=== PATIENT | male | born 1930 | race Hispanic/Latino ===

== ENCOUNTER 2017-11-25 15:29 | Observation (INO) | payer OTHER ==
[~2017-11-25] VITALS: Ht 172.7 cm; Wt 105.9 kg
[2017-11-25 16:49] LABS: BASOPHILS % (AUTO) 0.9 % (0.0-5.0); EOSINOPHILS % (AUTO) 2.1 % (0.0-8.0); HEMATOCRIT 32.5 % (42-54); LYMPHOCYTES % (AUTO) 20.2 % (21.0-51.0); MEAN CORPUSCULAR HEMOGLOBIN 31.2 pg (27.0-33.0); MEAN CORPUSCULAR HGB CONC 35.9 g/dL (32.0-36.0); MEAN CORPUSCULAR VOLUME 86.8 fL (79-99); MONOCYTES % (AUTO) 11.2 % (3.0-13.0); NEUTROPHILS % (AUTO) 65.6 % (40.0-77.0); PLATELET COUNT (AUTO) 191 K/uL (130-400); RED BLOOD CELL COUNT(AUTO) 3.74 MIL/uL (4.50-6.20); RED CELL DISTRIBUTION WIDTH 13.9 % (11.0-15.5); WHITE BLOOD COUNT (AUTO) 6.6 K/uL (4.8-10.8)
[2017-11-25] MEDS ORDERED: ALBUTEROL SULFATE 0.083% 2.5 MG/3 ML INH IH ONE (16:51)
[2017-11-25 17:10] LABS: CREATININE 1.4 mg/dL (0.5-1.5)
[2017-11-25 17:17] LABS: ALBUMIN 3.1 g/dL (3.5-5.0); B-TYPE NATRIURETIC PEPTIDE 476 pg/mL (0-100); BILIRUBIN,TOTAL 0.3 mg/dL (0.2-1.0); TOTAL PROTEIN, SERUM 6.5 g/dL (6.0-8.3)
[2017-11-25 18:40] LABS: INR 0.97 (0.85-1.15); PARTIAL THROMBOPLASTIN TIME 28.7 SEC (26.3-35.5); PROTHROMBIN TIME 10.2 SEC (9.6-11.6)
[2017-11-25] MEDS ORDERED: ACETAMINOPHEN 325 MG TAB PO PRN ×2 (23:30)
[2017-11-25] MEDS ORDERED: LIDOCAINE HCL-MPF 1% 2ML VIAL IVP PRN (23:30)
[2017-11-25] MEDS ORDERED: POTASSIUM CHLORIDE 10% ELIXIR 20 MEQ/15 ML UDCUP PO PRN (23:30)
[2017-11-25] MEDS ORDERED: POTASSIUM CHLORIDE 20 MEQ ERTAB PO PRN (23:30)
[2017-11-25] MEDS ORDERED: NITROGLYCERIN 0.4 MG SL TAB SL PRN (23:30)
[2017-11-25] MEDS ORDERED: POTASSIUM CHLORIDE 20MEQ/100ML 100 ML IV PRN (23:30)
[2017-11-25] MEDS ORDERED: GLUCAGON 1MG KIT 1 MG ML IM PRN (23:30)
[2017-11-25] MEDS ORDERED: DEXTROSE 50%-WATER 50 ML DISP.SYRIN IV PRN (23:30)
[2017-11-25] MEDS ORDERED: ONDANSETRON HCL MDV 20ML 2 MG/ML VIAL IV PRN (23:30)
[2017-11-25] MEDS ORDERED: ENOXAPARIN SODIUM 100 MG/1 ML SQ ONE (23:58)
[2017-11-26] MEDS ORDERED: ENOXAPARIN SODIUM 30 MG/0.3 ML SQ ONE
[2017-11-26] MEDS ORDERED: ENOXAPARIN SODIUM 40 MG/0.4 ML SYRINGE SQ ONE
[2017-11-26 01:03] LABS: CREATINE KINASE MB 1.8 ng/mL (0.5-3.6); CREATINE KINASE, TOTAL 81 U/L (21-232); MYOGLOBIN 105 ng/mL (10-92); TROPONIN I < 0.04 ng/mL (0.00-0.06)
[2017-11-26 01:29] VITALS: BP 158/79
[2017-11-26 03:56] VITALS: BP 118/52
[2017-11-26] MEDS ORDERED: NITROGLYCERIN 1GM/1 INCH PACKET TD SCH ×2 (06:00→09:16)
[2017-11-26] MEDS: IPRATROPIUM 0.5 MG/2.5 ML INH IH SCH ×3 (06:03→18:44)
[2017-11-26] MEDS: INSULIN HUMULIN R 100 UNIT/ML 3ML SQ SCH ×5 (06:03→20:57)
[2017-11-26 06:12] LABS: HEMATOCRIT 33.6 % (42-54); MEAN CORPUSCULAR HEMOGLOBIN 30.2 pg (27.0-33.0); MEAN CORPUSCULAR HGB CONC 34.5 g/dL (32.0-36.0); MEAN CORPUSCULAR VOLUME 87.5 fL (79-99); PLATELET COUNT (AUTO) 177 K/uL (130-400); RED BLOOD CELL COUNT(AUTO) 3.84 MIL/uL (4.50-6.20); RED CELL DISTRIBUTION WIDTH 13.9 % (11.0-15.5); WHITE BLOOD COUNT (AUTO) 6.2 K/uL (4.8-10.8)
[2017-11-26 06:19] LABS: HEMOGLOBIN A1C 6.2 % (4.0-6.0)
[2017-11-26 06:37] LABS: CARBON DIOXIDE 26 mmol/L (21-32); CHLORIDE 98 mmol/L (101-111); CREATINE KINASE MB 1.6 ng/mL (0.5-3.6); CREATINE KINASE, TOTAL 83 U/L (21-232); CREATININE 1.3 mg/dL (0.5-1.5); GLOMERULAR FILTR. RATE CALC 55 mL/min (>60); GLUCOSE,RANDOM 99 mg/dL (70-105); MYOGLOBIN 98 ng/mL (10-92); POTASSIUM 4.7 mmol/L (3.5-5.1); SODIUM SERUM 131 mmol/L (136-145); THYROID STIMULATING HORMONE 2.47 uIU/mL (0.36-3.74); TROPONIN I < 0.04 ng/mL (0.00-0.06); UREA NITROGEN, BLOOD 33 mg/dL (7-18)
[2017-11-26 07:43] VITALS: BP 114/51
[2017-11-26] MEDS: ASPIRIN 325 MG TABLET PO SCH (09:00)
[2017-11-26] MEDS: FAMOTIDINE 20MG TAB 20 MG TAB PO SCH (09:00)
[2017-11-26] MEDS: FUROSEMIDE 10 MG/ML 2ML VIAL IVP SCH ×2 (09:07→20:59)
[2017-11-26] MEDS ORDERED: METHYLPREDNISOLONE SOD SUCC 40MG/ML 1ML IVP SCH (09:15)
[2017-11-26] MEDS ORDERED: CEFTRIAXONE 1GM/D5W 50ML 50 ML IV SCH (09:15)
[2017-11-26] MEDS: CEFTRIAXONE SODIUM 1 GM IVP SCH (10:46)
[2017-11-26] MEDS: CIPROFLOXACIN HCL 0.3% 5ML DROPS OP SCH ×2 (10:46→20:59)
[2017-11-26 12:03] VITALS: BP 111/45
[2017-11-26] MEDS: NITROGLYCERIN 1GM/1 INCH PACKET TD SCH ×2 (13:04→22:00)
[2017-11-26] MEDS: METHYLPREDNISOLONE SOD SUCC 40MG/ML 1ML IVP SCH ×2 (13:04→22:31)
[2017-11-26] MEDS ORDERED: TRIA1TAB3 PO (13:20)
[2017-11-26] MEDS ORDERED: LEVO112T7 PO (13:20)
[2017-11-26] MEDS ORDERED: BENA10TA10 PO (13:20)
[2017-11-26] MEDS ORDERED: TAMS0.4C32 PO (13:20)
[2017-11-26 16:08] VITALS: BP 150/62
[2017-11-26 19:15] VITALS: BP 128/57
[2017-11-27 00:06] VITALS: BP 137/61
[2017-11-27 03:46] VITALS: BP 124/59
[2017-11-27 03:59] LABS: HEMATOCRIT 35.6 % (42-54); MEAN CORPUSCULAR HEMOGLOBIN 31.1 pg (27.0-33.0); MEAN CORPUSCULAR HGB CONC 35.3 g/dL (32.0-36.0); MEAN CORPUSCULAR VOLUME 88.1 fL (79-99); NUCLEATED RED BLOOD CELLS 0.1 % (0.0-0.19); PLATELET COUNT (AUTO) 204 K/uL (130-400); RED BLOOD CELL COUNT(AUTO) 4.04 MIL/uL (4.50-6.20); WHITE BLOOD COUNT (AUTO) 5.4 K/uL (4.8-10.8)
[2017-11-27 04:10] LABS: CREATININE 1.4 mg/dL (0.5-1.5); POTASSIUM 4.6 mmol/L (3.5-5.1)
[2017-11-27 04:12] LABS: B-TYPE NATRIURETIC PEPTIDE 468 pg/mL (0-100)
[2017-11-27] MEDS: METHYLPREDNISOLONE SOD SUCC 40MG/ML 1ML IVP SCH ×2 (05:37→13:23)
[2017-11-27] MEDS: NITROGLYCERIN 1GM/1 INCH PACKET TD SCH ×2 (06:00→13:25)
[2017-11-27] MEDS: INSULIN HUMULIN R 100 UNIT/ML 3ML SQ SCH ×3 (06:06→16:30)
[2017-11-27] MEDS: IPRATROPIUM 0.5 MG/2.5 ML INH IH SCH ×3 (06:36→11:05)
[2017-11-27 07:47] VITALS: BP 160/66
[2017-11-27] MEDS: ASPIRIN 325 MG TABLET PO SCH (08:08)
[2017-11-27] MEDS: FAMOTIDINE 20MG TAB 20 MG TAB PO SCH (08:08)
[2017-11-27] MEDS: CEFTRIAXONE SODIUM 1 GM IVP SCH (08:08)
[2017-11-27] MEDS: FUROSEMIDE 10 MG/ML 2ML VIAL IVP SCH (08:08)
[2017-11-27] MEDS: CIPROFLOXACIN HCL 0.3% 5ML DROPS OP SCH (08:09)
[2017-11-27 11:07] VITALS: BP 136/52
[2017-11-27 16:00] VITALS: BP 129/54
== END 2017-11-27 17:30 ==
LOC: EDH 15:29 → EDHIP 18:00 → 2AH 11-26 01:14
PROVIDERS: ADMIT Internal Medicine; ATTEND Internal Medicine
DX: I48.91 Unspecified atrial fibrillation (principal); N18.9 Chronic kidney disease, unspecified; J40 Bronchitis, not specified as acute or chronic; D64.9 Anemia, unspecified; E11.22 Type 2 diabetes mellitus with diabetic chronic kidney disease; E11.51 Type 2 diabetes mellitus with diabetic peripheral angiopathy without gangrene; E78.5 Hyperlipidemia, unspecified; E87.1 Hypo-osmolality and hyponatremia; H35.30 Unspecified macular degeneration; H91.90 Unspecified hearing loss, unspecified ear; I87.8 Other specified disorders of veins; J81.1 Chronic pulmonary edema; N40.0 Benign prostatic hyperplasia without lower urinary tract symptoms; F03.90 Unspecified dementia, unspecified severity, without behavioral disturbance, psychotic disturbance, mood disturbance, and anxiety
CPT/HCPCS: 36415 ×3; 71045; 71250; 80048 ×2; 80053; 82550 ×2; 82553 ×2; 82948 ×6; 83036; 83874 ×2; 83880 ×2; 84443; 84484 ×3; 85025; 85027 ×2; 85610; 85730; 93005 ×3; 93306; 94640 ×6; 94664; 96374; 96375; 96376 ×2; 97039; 97116 ×2; 97161; 99285; A4218 ×2; G0378 ×47; G8978; G8979; G8980; G8981; G8982; G8983; J0696 ×3; J1650 ×3; J1940 ×3; J2920 ×4